=== PATIENT | male | born 1980 | race Hispanic/Latino ===

== ENCOUNTER 2018-07-23 13:03 | Observation (INO) | payer SELFPAY ==
[~2018-07-23] VITALS: Ht 165.1 cm; Wt 80.0 kg
--- NOTE | 2018-07-23 13:03 | NUR ---
PT ARRIVES ALERT AND ORIENTED VIA EMS. PT C/O LUQ PAIN, NOTED MX BRUISING ON BODY, RT SHOULDER LUQ ABD, STATES FROM FALLING . PT STATES HE HAS "BEEN DRINKING A LOT FOR TWO WEEKS".
--- NOTE | 2018-07-23 13:41 | NUR ---
PT WITH APPEARANCE OF INTOXICATION NOW HAS RECEIVED GI COCKTAIL AND IV MEDS ORDERED. PT AWARE OF PENDING XRAY AND CT SCANS. PT IS FIDGETTY IN BED, MOVING OFTEN.
[2018-07-23 13:48] LABS: HEMOGLOBIN 13.9 g/dl (14.0-18.0); IMMATURE GRANULOCYTES 0.6 % (0.0-5.0); MEAN CELL VOLUME 82.1 fL CALC (80.0-100.0); MEAN CORPUSCULAR HGB 29.3 pG CALC (26.0-32.0); MEAN CORPUSCULAR HGB CONC 35.6 g/L CALC (32.0-36.0); NEUT# 8.62 thou/uL (1.82-7.42); RED BLOOD COUNT 4.75 mill/uL (4.70-6.10)
[2018-07-23 13:51] LABS: ALBUMIN 4.8 g/dL (3.2-5.0); ALKALINE PHOSPHATASE 86 u/l (38-126); ANION GAP 23 (6-22 (CALC)); BILIRUBIN, TOTAL 0.9 mg/dL (0.0-1.4); BUN 7 mg/dL (9-20); BUN/CREATININE RATIO 13 (12-20 (CALC)); CARBON DIOXIDE 24 mmol/l (22-30); CHLORIDE 95 mmol/l (95-108); CREATININE 0.5 mg/dL (0.7-1.3); GFR > 60 ML/MIN (>=60 (CALC)); GFR FOR AFR.AMER. > 60 ML/MIN (>=60 (CALC)); POTASSIUM 3.6 mmol/l (3.5-5.1); SGOT/AST 298 u/l (17-59); SODIUM 138 mmol/l (137-146); TOTAL PROTEIN 8.8 g/dL (6.3-8.2)
[2018-07-23 13:58] LABS: LIPASE 3015 u/l (23-300)
--- NOTE | 2018-07-23 14:06 | NUR ---
PT RETURNS FROM CT SCAN, UNABLE TO BE STILL ENOUGH FOR PROCEDURE.
[2018-07-23 14:37] LABS: URINE BILIRUBIN - DIPSTICK NEGATIVE (NEGATIVE); URINE BLOOD DIPSTICK LARGE (NEGATIVE); URINE COLOR YELLOW; URINE GLUCOSE - DIPSTICK NEGATIVE (NEGATIVE); URINE KETONE TRACE mg/dL (NEGATIVE); URINE LEUK ESTERASE NEGATIVE (NEGATIVE); URINE NITRITE - DIPSTICK NEGATIVE (Negative); URINE PH 5.5 (4.5-8.0); URINE PROTEIN - DIPSTICK 100 mg/dL (NEG-TRACE); URINE SPECIFIC GRAVITY 1.015; URINE UROBILINOGEN - DIPSTICK 0.2 E.U./dL (0.2)
[2018-07-23 14:38] LABS: BARBITURATES NEGATIVE (NEGATIVE); COCAINE NEGATIVE (NEGATIVE); METHADONE NEGATIVE (NEGATIVE); OXCYCODONE NEGATIVE (NEGATIVE); TETRAHYDROCANNABIONOL NEGATIVE (NEGATIVE); TRICYLIC ANTIDEPRESSANTS NEGATIVE (NEGATIVE)
[2018-07-23 14:43] LABS: URINE RBC 25-50 RBC/hpf (0-5); URINE SQUAMOUS EPITHELIAL CELL FEW EPI/hpf (0-FEW)
--- NOTE | 2018-07-23 15:00 | NUR ---
PT TO CT AND BACK, THIS TIME WITH ATIVAN GIVEN PRIOR TO EXAM. PT DID EXPRESS FEAR OF CT MACHINE, BUT WAS PERSUADED TO CONTINUE, AND HE DID WELL.
--- NOTE | 2018-07-23 16:10 | NUR ---
PT AWARE OF PENDING ADMISSION, CONTINUES TO REST IN THE STRETCHER IN NO ACUTE DISTRESS, LIGHT SNORING HEARD.
--- NOTE | 2018-07-23 17:25 | NUR ---
PT ARRIVED TO [facility] VIA STRETCHER ACCOMPANIED BY ER NURSE. PT AMBULATORY, ORIENTED TO ROOM AND CALL LIGHT, PT IS SHAKEY, GUARDED, DOES NOT MAKE EYE CONTACT. PT IS [place]UR[place] SPEAKING ONLY, DISCUSSED POC, PT NAUSEOUS AND DRY HEAVING. MD NOTIFIED FOR ORDERS, PT STATES HE IS DEPRESSED AND DRINKS ON A DAILY BASIS 24-30 BEERS A DAY BUT RECENTLY UNDERWENT ON A HEAVIER BINGE. PT STATES THIS IS THE SECOND TIME WITH SUCH PAIN AND DX OF PANCREATITIS. DISCUSSED IVF AND ATIVAN, VERBALIZED UNDERSTANDING. NOTED REDNESS TO KNEES BILAT WITH PUSTULES WARM TO TOUCH, PT STATES HE WORKS OUTSIDE AND WAS BIT BY ANTS. ADMISSION ASSESSMENT COMPLETED. CALL LIGHT IN REACH,CONTINUE TO MONITOR.
[2018-07-23 17:30] VITALS: BP 145/89
--- NOTE | 2018-07-23 17:30 | NUR ---
PT TO ROOM 272 WITHOUT INCIDENT, REPORT TO TYLER.
[2018-07-23 19:52] VITALS: BP 154/98
--- NOTE | 2018-07-23 20:00 | NUR ---
ASSESSMENT IS COMPLETED: IV SITE IS FREE FROM REDNESS OR EDEMA. HR IS REG,PULSES ARE STRONG X4, ABD IS SOFT WITH ACTIVE BS. C/O MILD PAIN AT THIS TIME. CONTINUE TO STERLING AND HALIE.
--- NOTE | 2018-07-24 00:10 | NUR ---
PT IS RELAXING IN BED WITH NO DISTRESS NOTED. IV SITE IS FREE FROM REDNESS OR EDMEA.
--- NOTE | 2018-07-24 04:05 | NUR ---
PT IS RELAXING IN BED WITH NO DISTRESS NOTED. IV SITE IS FREE FROM REDNESS OR EDEMA. CONTINUE TO OSBERVE AND MONITOR.
[2018-07-24 05:01] VITALS: BP 148/83
[2018-07-24 05:24] LABS: HEMATOCRIT 34.2 % (39.0-50.0); MEAN CELL VOLUME 85.5 fL CALC (80.0-100.0); MEAN CORPUSCULAR HGB 29.3 pG CALC (26.0-32.0); MEAN CORPUSCULAR HGB CONC 34.2 g/L CALC (32.0-36.0); RED CELL DISTRI WIDTH 13.1 % (11.5-15.5)
[2018-07-24 05:44] LABS: ALKALINE PHOSPHATASE 72 u/l (38-126); ANION GAP 16 (6-22 (CALC)); BILIRUBIN, TOTAL 1.1 mg/dL (0.0-1.4); BUN 6 mg/dL (9-20); BUN/CREATININE RATIO 11 (12-20 (CALC)); CARBON DIOXIDE 28 mmol/l (22-30); CHLORIDE 98 mmol/l (95-108); CREATININE 0.6 mg/dL (0.7-1.3); GFR > 60 ML/MIN (>=60 (CALC)); GFR FOR AFR.AMER. > 60 ML/MIN (>=60 (CALC)); POTASSIUM 3.7 mmol/l (3.5-5.1); SGOT/AST 216 u/l (17-59); SODIUM 138 mmol/l (137-146); TOTAL PROTEIN 7.5 g/dL (6.3-8.2)
[2018-07-24 05:59] LABS: HEMOGLOBIN 11.7 g/dl (14.0-18.0)
[2018-07-24 06:12] LABS: LIPASE 4906 u/l (23-300)
[2018-07-24 07:51] VITALS: BP 141/78
--- NOTE | 2018-07-24 07:51 | NUR ---
PT A/O X3. SPEECH IS CLEAR. PT MOSTLY UZBEK SPEAKING. RESP EVEN AND UNLABORED. LUNG SOUNDS CLEAR. PT APPEARS TO BE SHAKEY AT THIS TIME. NO SIGNS OF AGITATION. BOWEL SOUNDS ACTIVE X4. LT SIDED ABDOMINAL TENDERNESS. PT C/O LT SIDED ABDOMINAL PAIN. 7 OUT OF 10 ON PAIN SCALE. MEDICATED W/ ONE 5/325 LORTAB PO. REPOSITIONED FOR COMFORT. STRONG RADIAL AND PEDAL PULSES. #20 RAC NS @125. SITE APPEARS HEALTHY. PT HAS SOME ABRASIONS TO BILATERAL KNEES AND LT FOREARM. NO FURTHER NEEDS STATED BY THE PT. POC DISCUSSED. SAFETY PRECAUTIONS IN PLACE. CALL LIGHT IN REACH. WILL CONTINUE TO MONITOR.
--- NOTE | 2018-07-24 12:05 | NUR ---
PT IN BED EATING LUNCH. NO C/O PAIN AT THIS TIME. PT APPEARS TO BE CALM. DENYING ANY NEEDS AT THIS TIME. CALL LIGHT IN REACH. WILL CONTINUE TO MONITOR.
[2018-07-24 16:20] VITALS: BP 153/92
--- NOTE | 2018-07-24 16:20 | NUR ---
PT RESTING IN BED. NO C/O PAIN OR NEEDS AT THIS TIME. CALL LIGHT IN REACH. WILL CONTINUE TO MONITOR.
--- NOTE | 2018-07-24 19:50 | NUR ---
ASSESSMENT IS COMPLETED: IV SITE IS FREE FROM REDNESS OR EDEMA. HR IS REG,PULSES ARE STRONG X4,ABD IS SOFT WIT ACTIVE BS. BREATH SOUNDS ARE CLEAR. BILATERALLY. CONTINUE TO OSBERVE AND MONITOR.
[2018-07-24 19:55] VITALS: BP 167/96
--- NOTE | 2018-07-25 | NUR ---
PT IS RELAXING IN BED WITH NO DISTRESS NOTED.URINE IS CLOUDY. CONTINUE TO OBSERVE AND MONITOR.
--- NOTE | 2018-07-25 04:45 | NUR ---
PT IS RELAXING IN BED WITH NO DISTRESS NOTED IV SITE IS FREE FROM REDNESS OR EDEMA. CONITNUE TO OSBERVE AND MONITOR.
[2018-07-25 04:49] VITALS: BP 160/96
[2018-07-25 05:39] LABS: HEMATOCRIT 36.4 % (39.0-50.0); HEMOGLOBIN 12.7 g/dl (14.0-18.0); IMMATURE GRANULOCYTES 0.5 % (0.0-5.0); MEAN CORPUSCULAR HGB 29.7 pG CALC (26.0-32.0); MEAN CORPUSCULAR HGB CONC 34.9 g/L CALC (32.0-36.0); NEUT# 6.88 thou/uL (1.82-7.42); RED BLOOD COUNT 4.28 mill/uL (4.70-6.10); RED CELL DISTRI WIDTH 13.2 % (11.5-15.5)
[2018-07-25 05:42] LABS: ALBUMIN 4.1 g/dL (3.2-5.0); ALKALINE PHOSPHATASE 72 u/l (38-126); AMYLASE 653 u/l (30-110); ANION GAP 17 (6-22 (CALC)); BUN 7 mg/dL (9-20); BUN/CREATININE RATIO 15 (12-20 (CALC)); CARBON DIOXIDE 24 mmol/l (22-30); CHLORIDE 99 mmol/l (95-108); CREATININE 0.5 mg/dL (0.7-1.3); GFR > 60 ML/MIN (>=60 (CALC)); GFR FOR AFR.AMER. > 60 ML/MIN (>=60 (CALC)); MAGNESIUM 2.1 mg/dL (1.6-2.3); POTASSIUM 3.3 mmol/l (3.5-5.1); SGOT/AST 146 u/l (17-59); SODIUM 136 mmol/l (137-146); TOTAL PROTEIN 7.7 g/dL (6.3-8.2)
[2018-07-25 05:56] LABS: LIPASE 9142 u/l (23-300)
[2018-07-25 07:30] VITALS: BP 144/82
--- NOTE | 2018-07-25 07:30 | NUR ---
PT RESTING IN BED, NO SIGNS OF DISTRESS NOTED, RESP EVEN AND UNLABORED. CIWA PROTOCOL COMPLETED SCORE OF 7. PT C/O NAUSEA STATES HE HAD VOMITTED THIS AM, PT ALSO STATES HE VOMITTED LAST NIGHT. INFORMED PT TO NOTIFY STAFF OF WHEN HE HAS NAUSEA, VOMITTING OR PAIN, VERBALIZED UNDERSTANDING. DISCUSSED POC, PT REFUSED BREAKFAST. CALL LIGHT IN REACH,CONTINUE TO MONITOR.
--- NOTE | 2018-07-25 09:05 | NUR ---
PT RESTING IN BED WITH EYES CLOSED, EASILY AROUSED TO VERBAL STIMULI, DISCUSSED IV THIAMINE, PT IN AGREEMENT. VOICES NO NEEDS OR COMPLAINTS AT THIS TIME. CALL LIGHT IN REACH,CONTINUE TO MONITOR.
--- NOTE | 2018-07-25 11:46 | NUR ---
TO BEDSIDE, DISCUSSED POC, AND PT STATES HE DOES NOT HAVE PAIN BUT DOES NOT HAVE MUCH OF AN APPETITE. MD STATES FOR PT TO EAT TOLERATED, VERBALIZED UNDERSTANDING. MEDICATED FOR LIBRIUM AT THIS TIME. CALL LIGHT IN REACH,CONTINUE TO MONITOR.
[2018-07-25 15:47] VITALS: BP 155/96
--- NOTE | 2018-07-25 16:20 | NUR ---
NEW IV STARTED, NOTED PT VERY ANXIOUS AND HANDS SHAKING. MEDICATED WITH IV ATIVAN. PT TOLERATED WELL, DENIES ANY HALLUCINATIONS. CALL LIGHT IN REACH, CONTINUE TO MONITOR.
[2018-07-25 20:22] VITALS: BP 176/96
--- NOTE | 2018-07-25 20:40 | NUR ---
PT IS RELAXING IN BED WITH NO DISTRESS NOTED. IV SITE IS FREE FROM REDNESS OR EDEMA. HR IS REG,PULSES ARE STRONG X4, ABD IS SOFT WITH ACTIVE BS. BREATH SOUNDS ARE CLEAR, BILATERALLY. CONTINUE TO OBSERVE AND MONITOR.
--- NOTE | 2018-07-25 22:00 | NUR ---
PT AMBULATING IN THE HALLWAY TOOK IV OUT OF HIS ARM. STATING" HE WAS GOING HOME." EXPLAINED THAT THE DR WOULD SEE HIM TOMORROW. HE THEN AGREED TO STAY. WILL RESTRRT THE IV.
--- NOTE | 2018-07-25 22:21 | NUR ---
SPOKE WITH DR KENYA WHEAT PT WANTING TO LEAVE. TRANSLATING FROM THE CHIEF OPERATOR HYDROFORMER. PT INSIST ON GOING HOME WILL SIGN AMA PAPERS/NOW HAS DECIDED TO STAY HERE.
--- NOTE | 2018-07-25 22:58 | NUR ---
# 22 PLACED IN RH AFTER 2 ATTEMPTS MADE. GAVE PT COFFEE. CONTINUE TO OBSERVE AND MONITOR.
--- NOTE | 2018-07-25 23:21 | NUR ---
PT WANTS TO GO HOME SO HE CAN PICK TOMATOES. EXPLAINED WAIT FOR THE DR TOMORROW. ALSO STATED"HE IS BORED AND WANTS SOMEONE TO TALK TO ".
--- NOTE | 2018-07-25 23:38 | NUR ---
SENT A MESSAGE TO DR. ZAMBRANO RE: PT WILLING TO STAY AND IV REPLACED.
--- NOTE | 2018-07-25 23:44 | NUR ---
PT TOOK IV OUT AGAIN
--- NOTE | 2018-07-25 23:48 | NUR ---
SPOKE WITH THE LIBRARY CUSTOMER SERVICE CLERK RECOMMENDS WE LEAVE IV OUT INFORM THE DR IN THE AM RE: IV OUT AND PT NOT BEING COMPLIANT. CONTINUE TO OSEBRVE AND MONITOR.
--- NOTE | 2018-07-25 23:56 | NUR ---
PT PROCEEDED TO DISMANTLE THE IV FLUIDS AND THROW EVERYTHING AWAY. COUNCILED PT AND GAVE MEDICATION ENCOURAGING PT TO REST
--- NOTE | 2018-07-26 | NUR ---
PT IS LAYING IN BED. AFTER DRINKING COFFEE AND ALREADY TAKEN THE IV OUT.
--- NOTE | 2018-07-26 01:15 | NUR ---
PT IS WIDE AWAKE AND WANTING TO LEAVE. ASKING THE HOME CARE ASSISTANT TO COME AND SEE THE PT TO FIND OUT IF HE WANTS TO WAIT UNTIL AM TO SEE THE
--- NOTE | 2018-07-26 01:25 | NUR ---
PT IS SIGNING OUT AMA. WAS EXPLAINED BY THE ART STUDIO TEACHER IN OCCITAN THAT IT MEANS HE IS LEAVING "AMA". PT WANTED TO EAT EXPLAINED THAT HE WAS VOMITING AND PT STATES' THAT IS NOT TRUE. ". PT ESCORTED OFF THE UNIT WITH ART STUDIO TEACHER (FELICIANO)
--- NOTE | 2018-07-26 01:34 | NUR ---
SENT A MESSAGE THAT PT SIGNED OUT AMA. IV SITE WAS ALREADY OUT. CONTINUE TO OSEBRVE AND MONITOR.
--- NOTE | 2018-07-26 01:38 | NUR ---
PT LEFT AMA Discharge instructions given. Patient verbalizes understanding of same. Discharged in good condition via Ambulatory to Home with *Other. All belongings sent with pt.
== END 2018-07-26 02:51 | disposition left against medical advice (07) | DRG 439 ==
LOC: ED 13:03 → ED-I 15:46 → ED 15:59 → MS2 16:00
PROVIDERS: Emergency Medicine; Internal Medicine Nephrology; ADMIT Internal Medicine; ATTEND Internal Medicine
DX: K85.20 Alcohol induced acute pancreatitis without necrosis or infection (principal); G93.40 Encephalopathy, unspecified; F10.129 Alcohol abuse with intoxication, unspecified; F32.9 Major depressive disorder, single episode, unspecified; K70.10 Alcoholic hepatitis without ascites; K70.0 Alcoholic fatty liver; Y90.8 Blood alcohol level of 240 mg/100 ml or more
CPT/HCPCS: G0378; J2060; S0164